=== PATIENT | female | born 1990 | race Caucasian/White ===

== ENCOUNTER 2025-04-22 15:35 | Inpatient (IN) | payer OTHER, SELFPAY ==
[2025-04-22 15:46] VITALS: PULSE 89; O2SAT 96
[2025-04-22 15:49] VITALS: TEMP 36.6
[2025-04-22 15:52] VITALS: BP 117/80; PULSE 85
--- NOTE | 2025-04-22 16:47 | P.OBHP_ITS ---
OB - H&P: HPI Labor/Induction History of Present Illness Time Seen by Provider: 16:47 Date Seen: 04/22/25 Chief Complaint: The patient is a 34 year old 1 para 0 at 41wks weeks gestation by LMP c/w 8wk US, who presents for postdates induction. Chief complaint: induction : 1 Para: 0 Date of last menstrual period: 07/09/24 Estimated date of delivery: 04/15/25 Gestational age based on last menstrual period: 41 Indications for induction: other (postdates) Narrative: Daphne Velasquez is a 34 year old female att 41wks weeks gestation by LMP c/w 8wk US, who presents for postdates induction. She is not feeling any contractions. No abdominal pain or bleeding. No LOF. she does report a 'stress headache' that started 2 hours ago. has not taken anything for it. It is along occiput and neck and pt reports she tends to get when stressed and she is anxious for labor. No vision changes. has been uncomplicated except for baseline anxiety that has increased and started on sertraline which has been helpful per pt. She did have itching in with negative bile acid salts and itching improved over time. She does note FH PPH Bedside US confirms cephalic position History of Present Dating criteria: based on LMP care: good care Ultrasounds: normal 1st trimester US and normal mid trimester US Labs Blood type: A (+) positive Rubella: immune RPR/VDLR: nonreactive GBS status: negative HBsAG: negative Meds Home Medications and Allergies Allergies Allergy/AdvReac Type Severity Reaction Status Date / Time No Known Drug Allergies Allergy Verified 04/22/25 16:45 OB - H&P: Exam Physical Exam: Vital signs: Temp Pulse BP Pulse Ox 97.8 F 85 117/80 96 04/22/25 15:49 04/22/25 15:52 04/22/25 15:52 04/22/25 15:46 Constitutional: Constitutional: no acute distress and cooperative Routine HEENT Exam: Head: Present normal inspection Eye: Present normal appearance ENT: Present mucous membranes moist Routine Respiratory Exam: Respiratory: Present CTA bilaterally Routine Cardiovascular Exam: Cardiovascular: RRR Routine Exam: External: Present normal external exam Detailed Labor and Delivery Exam: Patient Gravid: yes Dilation (cm): 1 Effacement (%): 0 Cervix position: mid Consistency: medium Fetus (Single): Station: -3 Amniotic Membrane Status: intact Heart Rate Baseline: 140 Monitor Accelerations: Present Monitor Decelerations: None Skilled Nursing Variability: Moderate (6-25) OB - Problem Based A/P Additional Plan (1) Term : Status: Acute Plan 41wk , discussed induction in clinic and again tonight. Various induction techniques and variability of induction course reviewed. all ?'s answered. Bedside US confirmed cephalic position. Picture taken. GBS neegative. Will start PV cytotec. I placed first dose. pt and SO in agreement with plan Delivery/Labor/Induction Plan Plan: induction Induction method: per misoprostol protocol
[2025-04-22 17:03] VITALS: BP 122/83; PULSE 73; PULSE 77; TEMP 36.6; O2SAT 97
[2025-04-22] MEDS: ACETAMINOPHEN 500 MG TABLET 1000 MG PO (17:47)
[2025-04-22 18:56] LABS: Hematocrit* 37.2 % (33.0-51.0); Hemoglobin* 12.5 gm/dL (12.0-16.0); Immature Granulocytes Abs Auto 0.03 K/uL (0.00-0.30); Immature Granulocytes Pct Auto 0.3 %; Lymphocytes Absolute Auto 2.32 K/uL (0.90-2.90); Mean Corpuscular HGB Conc 34 gm/dL (32-36); Mean Corpuscular Hemoglobin 30 pg (26-34); Mean Corpuscular Volume 91 fL (80-100); RDW Coefficient of Variation % 13.2 % (11.5-15.5); Red Blood Count* 4.11 m/uL (4.00-5.20); White Blood Count* 9.46 K/uL (4.50-11.00)
[2025-04-22 18:57] VITALS: BMI 36.7
[2025-04-22 19:05] LABS: Slide Review Reflex No
[2025-04-22 19:47] VITALS: BP 139/89; PULSE 69; RESP 16; TEMP 37; O2SAT 97
[2025-04-23] VITALS (80 sets, daily range): BP systolic 81–135; BP diastolic 49–91; PULSE 60–98; RESP 16; TEMP 36.6–37; O2SAT 95–100
[2025-04-23] MEDS: ONDANSETRON 2 MG/ML inj 4 MG IV (06:16)
[2025-04-23] MEDS: LACTATED RINGERS 1000 ML 1,000 ML 1125 ML IV (06:27)
[2025-04-23] MEDS: ROPIVACAINE 0.2% 100 ml 100 ML 12 MG EPIDURAL ×2 (07:09→14:32)
[2025-04-23] MEDS: LIDOCAINE 2% (PF) 5 ML VIAL EPIDURAL (07:09)
--- NOTE | 2025-04-23 07:15 | PM.ANBPRC ---
[facility] Surgical History (Updated 04/22/25 @ 17:11 by Linda Lares, ) Kinder teeth extracted ?K08.409 - Partial loss of teeth, unspecified cause, unspecified class (ICD-10) H/O excision of ganglion cyst ?Z98.890 - Other specified postprocedural states (ICD-10) Social History What is your current living situation?: I presently have a place to live Problems where you live: no known problems In the past 12 months, utilities in danger of being shut off: no In past 12 months, lack of transportation kept you from medical appts, meetings, work, or getting things needed for daily living: no In the past 12 mos, have been you worried that your food would run out before you had money to buy more?: never true In the past 12 mos, the food you bought just didn't last and you didn't have money to buy more?: never true Smoking Status: Never smoker How often does anyone, including family, friends and others, physically hurt you: never How often does anyone, including family, friends and others, insult or talk down to you: never How often does anyone, including family, friends and others, threaten you with harm: never How often does anyone, including family, friends and others, scream or curse at you: never Meds Home Medications and Allergies Home Medications ?Medication ?Instructions ?Recorded ?Confirmed ?Type aspirin 81 mg tablet 81 mg PO DAILY 04/22/25 04/22/25 History rainbow lite womens multivitamin 04/22/25 History sertraline 25 mg tablet 25 mg PO DAILY 04/22/25 04/22/25 History thoren 04/22/25 History Allergies Allergy/AdvReac Type Severity Reaction Status Date / Time No Known Drug Allergies Allergy Verified 04/22/25 16:45 Results Labs Labs: Laboratory Results - last 24 hr 04/22/25 18:49 WBC 9.46 RBC 4.11 Hgb 12.5 Hct 37.2 MCV 91 MCH 30 MCHC 34 RDW Coeff of Vijay 13.2 Plt Count 231 Neut % (Auto) 68.4 Lymph % (Auto) 24.5 Thomas % (Auto) 5.5 Eos % (Auto) 1.1 Baso % (Auto) 0.2 Neut # (Auto) 6.47 Lymph # (Auto) 2.32 Thomas # (Auto) 0.50 Eos # (Auto) 0.10 Baso # (Auto) 0.02 Abs Immat Gran (auto) 0.03 Imm/Tot Granulo (auto) 0.3 Blood Type A Positive Antibody Screen NEGATIVE Vital Signs Vital Signs: Last Vital Signs Temp 97.9 F 04/23/25 06:04 Pulse 74 04/23/25 07:14 Resp 16 04/22/25 19:47 BP 125/77 04/23/25 07:14 Pulse Ox 100 04/23/25 07:14 Weight: 116.1 kg Height: 177.8 cm Anesthesia Procedures Epidural Insertion Patient Location: OB Start Time: 06:50 Stop Time: 07:15 Start Date: 04/23/25 Stop Date: 04/23/25 Reason for Block: primary anesthetic Patient Position: sitting Performed By: Krishna Schneider Preanesthetic Checklist: IV checked, risks and benefits discussed, surgical consent, monitors and equipment checked, pre-op evaluation, timeout performed and anesthesia consent Prep: chlorhexidine gluconate Monitoring: blood pressure monitoring, cardiac technologist, continuous pulse oximetry and heart rate Approach: midline Vertebral Space: lumbar (1-5) Needle Type: Tuohy needle Injection Technique: continuous catheter (catheter) Needle gauge: 17 Needle Length (cm): 10 cm Needle Insertion Depth (cm): 6 Catheter Gauge: 19 Catheter Type: multi-orifice Catheter at skin depth (cm): 12 Test Dose Result: negative and lidocaine 1.5% with epinephrine 1 to 200,000
[2025-04-23] MEDS: LACTATED RINGERS 1000 ML 1,000 ML 75 ML IV ×3 (07:33→13:18)
--- NOTE | 2025-04-23 07:40 | PM.OBPNL ---
Subjective Time Seen by Provider: 07:40 Date Seen: 04/23/25 Narrative: Pt received two doses vaginal cytotec last evening and started alia regularly. Was checked at 6:20 by RN and ./-1. pt requested epidural and received epidural and is now resting comfortably. pt notes some bloody show when using restroom this morning and possible small gush fluid when on toilet she says. pt was not sure if urine or water broke but felt like more then typical urine. Objective Vital Signs: Last Vital Signs Temp 97.9 F 04/23/25 07:28 Pulse 70 04/23/25 07:37 Resp 16 04/22/25 19:47 BP 118/73 04/23/25 07:37 Pulse Ox 100 04/23/25 07:24 Contractions Monitor mode: External Contraction Frequency: q2min Contraction pattern: Regular Assessment Heart Rate Baseline: 125 Long-Term Variability: Moderate (6-25) Monitor Accelerations: Present Monitor Decelerations: Variable (rare) Labor Progress: per RN at 5:30 5./-1 Plan Plan: 41wk induction for postdates -s/p 2 PV cytotec -appears to be transitioning into active labor, now comfortable with epidural -GBS negatve -discussed plan for today and variability of labor/inductions with pt, SO. RN's at bedside. At this time will plan expectant management, RN will recheck cervix when she places urinary catheter here shortly.
[2025-04-23] MEDS: PHENYLEPHRINE 100 MCG/ML SYRINGE IVP ×2 (11:31→11:42)
--- NOTE | 2025-04-23 13:27 | PM.OBPNL ---
Subjective Time Seen by Provider: 13:20 Date Seen: 04/23/25 Narrative: RN noted contractions starting to space and be more irregular. pt did received IVF bolus and couple doses phenylephrine around 11:30 due to low bp and FHT variables/lates. These improved. Currently resting comfortably. Objective Vital Signs: Last Vital Signs Temp 98.2 F 04/23/25 13:19 Pulse 70 04/23/25 13:21 Resp 16 04/22/25 19:47 BP 117/77 04/23/25 13:21 Pulse Ox 100 04/23/25 07:24 Pelvic Exam Dilation (cm): 9 Effacement (%): 100 Station: 0 Comments: bulging bag Contractions Monitor mode: External Contraction Frequency: q1-4min Contraction pattern: Irregular Assessment Assessment: active labor Station: 0 Amniotic Membrane Status: AROM Heart Rate Baseline: 140 Mcc Variability: Moderate (6-25) Monitor Accelerations: Present Monitor Decelerations: Variable (some lates, improved with IVF and phenylephrine ) Plan Plan: Postdates induction -s/p two doses cytotec last night -AROM discussed and pt in agreement with plan. AROM performed with small amount blood tinged fluid. -All ?'s answered.
[2025-04-23] MEDS: ACETAMINOPHEN 500 MG TABLET 1000 MG PO ×2 (16:22→22:46)
[2025-04-23] MEDS: OXYTOCIN 30 unit/500 ML in NS 30 UNIT/500 ML BAG 300 UNIT IVPB (18:11)
--- NOTE | 2025-04-23 19:30 | W.PM.VAGDEL1 ---
Procedure Delivery date: 04/23/25 Procedure Done: Global Procedure Details: The patient is a 34 year-old admitted on evening of 04/22/25 at 41 Weeks, 0 Days gestation for induction due to postdates.? Cervical exam on admission was 1/thick/-3 station with membranes intact in vertex presentation.? She was not feeling contractions.? heart rate demonstrated a category [1] tracing.? She was given vaginal cytotec x 2 and developed regular contractions overnight. By morning she was 5.5cm. She continued to progress on her own throughout the morning. AROM occurred on 04/23/25 at 1311 with blood tinged fluid. She went on to progress nicely and was complete at 1523 and started pushing at 1536. ? Labor Analgesia:? epidural ? Pitocin:? NO ? Labor onset:? 0600 ? Complete:? 1523 ? Pushing:? 1536 ? At 1810 a viable male delivered in vertex presentation over intact perineum via spontaneous vaginal delivery. There was a neck-body cord that was delivered through.? Infant was placed on maternal abdomen.? Cord was clamped and cut after a 60 second delay.? Nose and mouth were bulb suctioned.? Infant weight pending.? 8 at 1 minute and 9 at 5 minutes.? Shoulder dystocia: no. ? Placenta delivered spontaneously and complete at 1830 with a 3 vessel cord. There was a loose true know present in the cord. ? Mother and infant were stable after delivery. ? Lacerations:?L vaginal side wall tear extending deep near but not into cervix. This had initial significant bleeding and was repaired first with 3-0 vicryl and became hemostatic. 2nd degree tear that tunneled but did not extend through perineum. Left periurethral tear. These were all repaired with 3-0 vicryl and became hemostatic. Superficial midline perineal abrasion. Superficial left labial tear. Superficial abrasions/tears were hemostatic and not repaired. ? Blood loss: 300 mL. Blood loss measurement type: EBL ? Sponge and needles counts are correct. Estimated blood loss (mL): 300 Anesthesia type: Epidural [place] Infant Infant Gender: Male presentation: vertex Placental Delivery Description: Spontaneous Cord Description: 3 Vessels, True Knot and Loose
[2025-04-23] MEDS: IBUPROFEN 600 MG TABLET PO (21:14)
[2025-04-23] MEDS: SERTRALINE 50 MG TABLET 25 MG PO (22:04)
[2025-04-24 02:11] VITALS: BP 128/83; PULSE 66; RESP 16; TEMP 36.5; O2SAT 96
[2025-04-24 05:14] VITALS: BP 121/81; PULSE 66; RESP 18; TEMP 36.6; O2SAT 97
[2025-04-24] MEDS: IBUPROFEN 600 MG TABLET PO ×3 (05:32→18:43)
[2025-04-24 08:18] LABS: Hemoglobin* 10.7 gm/dL (12.0-16.0)
[2025-04-24 08:39] VITALS: BP 118/84; PULSE 83; RESP 16; TEMP 36.8; O2SAT 97
[2025-04-24] MEDS: ACETAMINOPHEN 500 MG TABLET 1000 MG PO ×3 (08:44→21:30)
[2025-04-24] MEDS: DOCUSATE SODIUM 100 MG CAPSULE PO ×2 (08:45→21:31)
--- NOTE | 2025-04-24 10:46 | PM.ANPOST ---
Post Anesthesia Note Post Anesthesia Note Patient seen: Inpatient Respiratory Status: adequate Cardiovascular Status: adequate Mental Status: baseline Pain: adequate Temp: baseline Anesthetic awareness: N/A Complications: none Follow care: none
[2025-04-24 11:18] VITALS: BP 108/73; PULSE 96; TEMP 36.7
--- NOTE | 2025-04-24 11:26 | PM.OBPNVD1 ---
OB - PN:Subj Subjective Time Seen by Provider: 07:30 Date Seen: 04/24/25 Interval history: PPD #1 after . Tired, but otherwise feeling ok. Continues to have lochia, similar to heavy menstrual bleeding. Voiding without difficulty. Perineum is sore, but tolerable with tylenol and ibuprofen. Moderate nipple discomfort with , even with nipple shield overnight, and patient requested to try bottle feeding with formula. She is open to meeting with and pumping. Would like to feed some breastmilk, but also ok with formula. OB - PN: Obj Exam Physical Exam: Vital signs: Temp Pulse Resp BP Pulse Ox O2 Del Method 98.0 F 96 16 108/73 97 Room Air 04/24/25 11:18 04/24/25 11:18 04/24/25 08:39 04/24/25 11:18 04/24/25 08:39 04/24/25 08:39 Narrative: General appearance: Well-appearing adult female. Alert, oriented and appropriate. Lying back in hospital bed. HEENT: EOMI, no conjunctival injection or discharge. MMM. Neck: Supple. CV: RRR, no rubs, murmurs or extra heart sounds. Pulm: CTAB, no wheezes, rales or rhonchi. Abdomen: Soft, non-tender. Fundus palpated at the umbilicus, maternal left. MSK: Moving all extremities. Ext: Warm and well-perfused. Trace LE edema. Skin: No rashes appreciated over exposed skin. Neuro: Grossly normal strength and sensation. No focal deficits. Psych: Normal affect. OB - PN: Obj Data Labs Labs: Laboratory Results - last 24 hr 04/24/25 08:13 Hgb 10.7 L OB - PN: A/P Delivery Assessment and Plan (1) Term : Problem details: IOL for post-dates. Cytotec for cervical ripening and AROM. Pushed 2.5 hours. Status: Acute (2) (normal spontaneous vaginal delivery): Problem details: Complex laceration. EBL 300 cc. Post- hgb 10.7. Status: Acute Assessment and Plan: - Routine post- cares - Scheduled tylenol and ibuprofen - Stool softener for bowel regimen. Can increase to BID and add miralax as needed - today. Continue to breast and/or bottle feed ad nik - Anticipate discharge 04/25 (3) Anxiety: Problem details: Sertraline started during Status: Acute Assessment and Plan: - Continue sertraline 25 mg daily
[2025-04-24 15:34] VITALS: BP 115/72; PULSE 81; RESP 20; TEMP 36.6; O2SAT 97
[2025-04-24 19:50] VITALS: BP 131/87; PULSE 74; RESP 20; TEMP 36.6; O2SAT 97
[2025-04-24] MEDS: SERTRALINE 50 MG TABLET 25 MG PO (21:32)
[2025-04-25 04:02] VITALS: BP 120/74; PULSE 73; RESP 16; TEMP 36.8; O2SAT 97
[2025-04-25] MEDS: ACETAMINOPHEN 500 MG TABLET 1000 MG PO ×2 (04:05→10:42)
[2025-04-25] MEDS: IBUPROFEN 600 MG TABLET PO ×2 (04:06→10:41)
[2025-04-25 08:05] VITALS: BP 117/81; PULSE 71; RESP 18; TEMP 36.8; O2SAT 98
[2025-04-25] MEDS: DOCUSATE SODIUM 100 MG CAPSULE PO (08:22)
--- NOTE | 2025-04-25 09:56 | PM.OBDSVD1 ---
DS: Providers Provider Time Seen by Provider: 09:57 Date Seen: 04/25/25 Date of admission: 04/22/25 15:35 Primary care physician: Linda Lares DO Admitting Clinician: Linda Lares DO Attending Physician on discharge: Sasha Sapp MD Date of Discharge: 04/25/25 DS: Diagnosis Discharge Diagnosis (1) Term : Status: Acute Problem details: IOL for post-dates. Cytotec for cervical ripening and AROM. Pushed 2.5 hours. (2) (normal spontaneous vaginal delivery): Status: Acute Problem details: Complex laceration. EBL 300 cc. Post- hgb 10.7. (3) Anxiety: Status: Acute Problem details: Sertraline started during Exam Narrative: Exam Narrative: General appearance: Well-appearing adult female. Alert, oriented and appropriate. Walking about the room. HEENT: EOMI, no conjunctival injection or discharge. MMM. Neck: Supple. CV: RRR, no rubs, murmurs or extra heart sounds. Pulm: CTAB, no wheezes, rales or rhonchi. Abdomen: Soft, non-tender. Fundus palpated 2 cm below the umbilicus. MSK: Moving all extremities. Ext: Warm and well-perfused. No LE edema. Skin: No rashes appreciated over exposed skin. Neuro: Grossly normal strength and sensation. No focal deficits. Psych: Normal affect. Const: Vital Signs, click to edit/add: Vital Signs - 24 hr 04/24/25 11:18 04/24/25 15:34 04/24/25 19:50 Temperature 98.0 F 97.9 F 97.8 F Pulse Rate [Pulse Oximeter] 96 81 74 Respiratory Rate 20 20 Blood Pressure [Le ft Arm] 108/73 115/72 131/87 Pulse Oximetry 97 97 Oxygen Delivery Me thod Room Air Room Air 04/25/25 04:02 04/25/25 08:05 Temperature 98.3 F 98.2 F Pulse Rate [Pulse Oximeter] 73 71 Respiratory Rate 16 18 Blood Pressure [Le ft Arm] 120/74 117/81 Pulse Oximetry 97 98 Oxygen Delivery Me thod Room Air Room Air OB - DS: Summary Hospital Course Hospital Course: The patient is a 34 year old G 1 P 0 at 41 weeks gestation that was admitted to the Center on 04/22/25 for IOL for post dates. She had an uncomplicated vaginal delivery. She delivered a viable male . She is bottle feeding. the patient has done well. Peripartum Data Infant delivery method: Vaginal Laceration description: Vaginal - 2nd Degree (complex) complications: none Gender: Male Discharge Plan: Home Status at Discharge Functional status at discharge: independent ambulation Overall status at discharge: patient is progressing back to baseline Time Spent with Patient Time attestation: Total time spent providing and/or coordinating discharge services: Time spent: Greater than 30 minutes Discharge Plan Discharge Disposition: Home, Self-Care Date of Admission: 04/22/25 15:35 Attending Provider on Discharge: Sasha Sapp Primary Care Provider: Linda Lares Condition: Stable Anticipated Discharge Date/Time: 04/25/25 09:53 Discharge Medications: New acetaminophen 500 mg Tablet 1,000 mg PO Q6H PRNQty: 30 0RF docusate sodium 100 mg Capsule 100 mg PO DAILY Qty: 30 0RF ibuprofen 600 mg Tablet 600 mg PO Q6H PRNQty: 30 0RF Continued sertraline 25 mg tablet 25 mg PO DAILY thoren 1 tab PO DAILY PRN rainbow lite womens multivitamin 1 tab PO DAILY PRN Discontinued aspirin 81 mg tablet 81 mg PO DAILY Discharge Orders: Discharge Order (Routine); Ordered 04/25/25 Ordered By: Sasha Sapp Patient Education: OB Vaginal/Bottle Feeding Activity Level: Activity as Tolerated Discharge Diet: Regular Follow Up Appointments: Linda Lares DO [Primary Care Provider, Family Practice] Forms: [employer] Info Instructions Discharge Comments: [facility] week post- visit
[2025-04-25 11:50] VITALS: BP 124/84; PULSE 84; RESP 16; TEMP 36.8; O2SAT 97
== END 2025-04-25 12:45 | disposition home or self-care (01) | DRG 807 ==
PROVIDERS: Admitting Provider Family Medicine; PCP Family Medicine; Visit Provider Family Medicine
DX: O48.0 Post-term pregnancy (principal); Z37.0 Single live birth; O70.1 Second degree perineal laceration during delivery; O99.344 Other mental disorders complicating childbirth; F41.9 Anxiety disorder, unspecified; Z3A.41 41 weeks gestation of pregnancy
CPT/HCPCS: 01967; 36415; 59200; 76815; 85018; 85025; 86592; 86850; 86900; 86901; A9270; J2270; J2405; J2795; J7120

== ENCOUNTER 2025-05-04 09:18 | Outpatient (CLI) | payer OTHER, SELFPAY ==
--- NOTE | 2025-05-04 11:00 | W.PM.LAC.MC ---
Consult Note - Mom Date of Visit Date of visit: 05/04/25 Reason for consultation: Assistance Needed Visit Code: Visit (mom exclusively pumping; discuss routine, pump settings, flange sizing, expected volume) Patient's Information Phone number: [phone] : 1 Para: 1 Allergies No Known Drug Allergies Allergy (Verified 04/22/25 16:45) Mother's Medical History: Medical History (Updated 05/03/25 @ 00:00 by Background Daemon) (normal spontaneous vaginal delivery) ?O80 - Encounter for full-term uncomplicated delivery (ICD-10) Delivery Information Delivery type: Vaginal Gestational Age: 41+1 Gestational Weight For Age: AGA Weight: 4.42 kg Discharge Weight: 4.238 kg Percentage weight loss: 4.2 Baby's Information Baby's Age at Visit: 11 days Baby's Provider or Clinic: [facility] Jaundice: No Past Experience Past Experience: No Current Frequency of Day Feedings: q2-3 hrs day and night Both Breasts: No Pumping Pumping: Yes Quantity Pumped: 120-160ml ea session Supplementing EBM Supplement: Yes (taking 85 ml ea feeding every 2-3 hrs; Dr. Sheets bottle, 15-20 min/fdg) Formula Supplement: Yes Baby Elimination Number of Wet Diapers a Day: ea feeding Number of BM a Day: multiple yellow and seedy Breast/Nipple Condition Breast Information: Breasts are symmetrical with rounded lower quadrants, intramammary distance is less than 1.5 inches. No erythema. Nipples are supple, everted prior to feeding. Nipples measured for flange sizing- R 20-21 L 20 Also measured after pumping and consistent measurements noted Breast Shape: Round Engorgement: No Maternal Nipple Condition - Left: Flat Nipple Maternal Nipple Condition - Right: Flat Nipple Sore Nipples: Yes Baby Assessment Skin: Normal Tongue/frenulum: Normal/elastic Palate: Average Lips: Relaxed and Symmetrical Jaw Alignment: Symmetrical Mucosa: [place], moist Onsite Observation Pre-Feed weight: 4.356 kg (up from 4.224 04/28/25-avg gain of 22gms/day) Assessments/Interventions Assessments/Interventions: Mom attempted BFing in hospital; first within 1 hr of and then about another hr later. She found this incredibly painful both times, even with a nipple shield on for flat nipples. Baby received formula while in the hospital; mom is exclusively pumping and has questions about routine, flange sizing, and volumes to expect. Baby is taking about 85ml ea feeding, parents have been increasing by 5 ml ea day for feedings. He takes all the volume. Discussed his age, growth and expected calorie needs; recommend his volume be increased to 90 ml ea feeding; if he completely finishes a 90ml bottle, then offer another 1/2 oz ea feeding now that he is older. Mom pumped with her Spectra pump while here. She expressed 120ml from her RIGHT breast and 75ml from her LEFT breast. She used a flange insert of 20mm bilaterally and described this as more comfortable than it has been; also discussed holding flange up a bit more to be flush with her breast for improved seal/suction. Reviewed pump settings, massage vs expression mode; may be helpful to toggle between them throughout the pump session. She is currently pumping 5-6x/day; discussed increasing that to 8/day as able with no longer than 4 hr stretches between pumps if possible. Overall 24 hr milk volume more important than individual pump; even some short 10 min pumps may be helpful to maintain her supply if able. Discussed breast massage before and during pumping may also help elicit more milk pumped. Milk storage guidelines discussed. Education provided: Supply/demand nature of milk supply, Sore nipple treatment options and Pumping for milk management Follow-Up Suggested follow up: Appointment as needed Time Spent Time spent with patient (min): 75 (time spent reviewing EMR, and face to face with mom and baby) Meds Home Medications and Allergies Home Medications ?Medication ?Instructions ?Recorded ?Confirmed ?Type rainbow lite womens multivitamin 1 tab PO DAILY PRN 04/22/25 04/23/25 History sertraline 25 mg tablet 25 mg PO DAILY 04/22/25 04/22/25 History thoren 1 tab PO DAILY PRN 04/22/25 04/23/25 History acetaminophen 500 mg tablet 1,000 mg (2 x 500 mg) PO Q6H PRN 04/25/25 Rx #30 tabs docusate sodium 100 mg capsule 100 mg PO DAILY #30 caps 04/25/25 Rx ibuprofen 600 mg tablet 600 mg PO Q6H PRN #30 tabs 04/25/25 Rx Allergies Allergy/AdvReac Type Severity Reaction Status Date / Time No Known Drug Allergies Allergy Verified 04/22/25 16:45
== END 2025-05-04 09:19 | disposition home or self-care (01) ==
PROVIDERS: PCP Family Medicine; Visit Provider Family Medicine
DX: Z39.1 Encounter for care and examination of lactating mother (principal)
CPT/HCPCS: G0463